=== PATIENT | female | born 1950 | race African-American/Black ===

== ENCOUNTER 2016-06-09 14:49 | Observation (INO) | payer MEDICARE, OTHER ==
[~2016-06-09] VITALS: Ht 154.9 cm; Wt 74.0 kg
[2016-06-09] VITALS (8 sets, daily range): BP systolic 114–197; BP diastolic 55–91; PULSE 62–73; RESP 17–20; TEMP 97.8–97.9; O2SAT 98–100
[~2016-06-09 14:49] MED LIST: ASPI-81 PO; BENI20TA25 PO; BENI40TA30 PO; GLUCTAB PO; HUMA100I3 SC; HUMSS SQ; LANTINJ SC; LANTUSP SQ; PRAV20 PO
--- NOTE | 2016-06-09 15:08 | PD ---
HPI Chief Complaint: Cardiac Complaint Time Seen by Provider: 15:07 Travel History International Travel<30 days: No Contact w/Intl Traveler<30days: No Traveled to known affect area: No History of Present Illness HPI 66 year-old female history of hypertension, diabetes mellitus, hypercholesterolemia, and GERD presents to emergency department for evaluation of a chest pressure intermittently occurring over the last 2 days. Patient has had associated palpitations. States she has had no nausea or vomiting. She states she has felt weak during some of the episodes. Denies any recent illnesses, fever, chills. No cough or chest congestion. No history of tobacco cigarette smoking. Patient states she has no cardiac history. No other symptoms to report. PFSH Past Medical History Anxiety: Yes High Cholesterol: Yes Diabetes: Yes Hypertension: Yes Immunizations Current: Yes Menopausal: Yes Tubal Ligation: Yes Past Surgical History Hysterectomy: Yes Social History Alcohol Use: No Tobacco Use: No Substance Use: No Allergies-Medications (Allergen,Severity, Reaction): Coded Allergies: Keflex (Verified Adverse Reaction, Mild, YEAST INFECTION, 06/09/16) Reported Meds & Prescriptions Reported Meds & Active Scripts Active Reported Metformin (Metformin HCl) 500 Mg Tab 500 Mg PO BID With meals Zantac (Ranitidine HCl) 150 Mg Tab 150 Mg PO BIDAC Pravastatin 40 Mg Tab 40 Mg PO DAILY Aspirin Adult Low Strength (Aspirin) 81 Mg Tabdr 81 Mg PO DAILY Trulicity Inj (Dulaglutide Inj) 1.5 Mg/0.5 Ml Pen 1.5 Mg SQ Q7D Review of Systems Except as stated in HPI: all other systems reviewed are Neg Physical Exam Narrative GENERAL: Well-nourished female patient, ambulatory and in no acute distress SKIN: Warm and dry. HEAD: Atraumatic. Normocephalic. EYES: Pupils equal and round. No scleral icterus. No injection or drainage. ENT: No nasal bleeding or discharge. Mucous membranes pink and moist. NECK: Trachea midline. No JVD. CARDIOVASCULAR: Regular rate and rhythm. No murmur appreciated. RESPIRATORY: No accessory muscle use. Clear to auscultation. Breath sounds equal bilaterally. GASTROINTESTINAL: Abdomen soft, non-tender, nondistended. Hepatic and splenic margins not palpable. MUSCULOSKELETAL: No obvious deformities. No clubbing. No cyanosis. No edema. NEUROLOGICAL: Awake and alert. No obvious cranial nerve deficits. Motor grossly within normal limits. Normal speech. PSYCHIATRIC: Appropriate mood and affect; insight and judgment normal. Data Data Last Documented VS Vital Signs Date Time Temp Pulse Resp B/P Pulse Ox O2 Delivery O2 Flow Rate FiO2 06/09/16 15:21 100 Room Air 06/09/16 15:20 73 19 187/81 06/09/16 14:55 97.8 Orders Electrocardiogram (06/09/16 ) Basic Metabolic Panel (Bmp) (06/09/16 15:16) Ckmb (Isoenzyme) Profile (06/09/16 15:16) Complete Blood Count With Diff (06/09/16 15:16) Magnesium (Mg) (06/09/16 15:16) Prothrombin Time / Inr (Pt) (06/09/16 15:16) Act Partial Throm Time (Ptt) (06/09/16 15:16) Troponin I (06/09/16 15:16) Lipase (06/09/16 15:16) Chest, Single Ap (06/09/16 15:16) Ecg Monitoring (06/09/16 15:16) Bilateral Bp Monitoring (06/09/16 15:16) Iv Access Insert/Monitor (06/09/16 15:16) Oximetry (06/09/16 15:16) Oxygen Administration (06/09/16 15:16) Aspirin Chew (Aspirin Chew) (06/09/16 15:30) Sodium Chloride 0.9% Flush (Ns Flush) (06/09/16 15:30) Admit Order (Ed Use Only) (06/09/16 16:34) Labs Laboratory Tests Test 06/09/16 15:35 White Blood Count 4.9 TH/MM3 Red Blood Count 3.94 MIL/MM3 Hemoglobin 12.0 GM/DL Hematocrit 36.7 % Mean Corpuscular Volume 93.1 FL Mean Corpuscular Hemoglobin 30.5 PG Mean Corpuscular Hemoglobin 32.8 % Concent Red Cell Distribution Width 13.3 % Platelet Count 259 TH/MM3 Mean Platelet Volume 8.2 FL Neutrophils (%) (Auto) 48.6 % Lymphocytes (%) (Auto) 40.5 % Monocytes (%) (Auto) 8.1 % Eosinophils (%) (Auto) 2.1 % Basophils (%) (Auto) 0.7 % Neutrophils # (Auto) 2.4 TH/MM3 Lymphocytes # (Auto) 2.0 TH/MM3 Monocytes # (Auto) 0.4 TH/MM3 Eosinophils # (Auto) 0.1 TH/MM3 Basophils # (Auto) 0.0 TH/MM3 CBC Comment DIFF FINAL Differential Comment Prothrombin Time 10.4 SEC Prothromb Time International 0.9 RATIO Ratio Activated Partial 21.1 SEC Thromboplast Time Sodium Level 138 MEQ/L Potassium Level 4.4 MEQ/L Chloride Level 103 MEQ/L Carbon Dioxide Level 27.0 MEQ/L Anion Gap 8 MEQ/L Blood Urea Nitrogen 16 MG/DL Creatinine 1.19 MG/DL Estimat Glomerular Filtration 55 ML/MIN Rate Random Glucose 193 MG/DL Calcium Level 9.8 MG/DL Magnesium Level 1.9 MG/DL Total Creatine Kinase 97 U/L Troponin I LESS THAN 0.02 NG/ML Lipase 326 U/L MDM Medical Decision Making Medical Screen Exam Complete: Yes Emergency Medical Condition: Yes Medical Record Reviewed: Yes Differential Diagnosis ACS versus angina versus vasospasm versus GERD versus dysrhythmia Narrative Course 66 year-old female presents to the emergency department for evaluation of a chest pressure. Patient states is not a definite pain. She appears well and without distress EKG is with prolonged MI interval, first-degree AV block. No ST elevation or depression. Vital signs are stable. Chest x-ray is with no acute disease. CBC is without acute concern. BMP is slightly elevated creatinine 1.19, GFR 55. BUN is within normal limits. Glucose is elevated at 193. Troponin is less than 0.02. Patient will be admitted to the chest pain center for further evaluation. Plan is discussed with the patient and my attending physician. They are in agreement with this plan of care. Diagnosis Primary Impression: Chest pain Qualified Code: R07.9 - Chest pain, unspecified type Admitting Information Admitting Physician Requests: Observation Condition: Stable Adalgisa AlonsoP Jun 09, 2016 15:08
[2016-06-09] MEDS ORDERED: ASPIRIN 81 MG CHEW TAB PO ONE (15:30)
[2016-06-09] MEDS ORDERED: SODIUM CHLORIDE 0.9% FLUSH 5 ML FLUSH IVF PRN ×2 (15:30→18:15)
[2016-06-09] MEDS ORDERED: PRAV40TA2 PO (15:40)
[2016-06-09] MEDS ORDERED: DULA0.5I SQ (15:40)
[2016-06-09] MEDS ORDERED: ASPI1TAB91 PO (15:40)
[2016-06-09] MEDS ORDERED: ZANT150T2 PO (15:40)
[2016-06-09] MEDS ORDERED: METF500T PO (15:40)
--- NOTE | 2016-06-09 15:43 | RADRPT ---
EXAM DATE/TIME: 06/09/2016 15:35 [facility] COMPARISON: No previous studies available for comparison. INDICATIONS : Chest pain and pressure for the past few days. MEDICAL HISTORY : Hypertension. Diabetes mellitus type II. SURGICAL HISTORY : None. ENCOUNTER: Initial ACUITY: 4 - 6 days PAIN SCORE: 5/10 LOCATION: Bilateral chest FINDINGS: A single view of the chest demonstrates the lungs to be symmetrically aerated without evidence of mas s, infiltrate or effusion. The cardiomediastinal contours are unremarkable. Osseous structures are intact. CONCLUSION: No acute disease. Roberto Field MD on June 09, 2016 at 15:41 Board Certified Radiologist. This report was verified electronically.
[2016-06-09 16:02] LABS: APTT (PATIENT) 21.1 SEC (24.3-30.1); INTERNATIONAL NORMALIZED RATIO 0.9 RATIO; PROTHROMBIN TIME - PATIENT 10.4 SEC (9.8-11.6)
[2016-06-09 16:04] LABS: ANION GAP 8 MEQ/L (5-15); BLOOD UREA NITROGEN 16 MG/DL (7-18); CHLORIDE 103 MEQ/L (98-107); GLOMERULAR FILTRATION RATE 55 ML/MIN (>89); MAGNESIUM 1.9 MG/DL (1.5-2.5); SODIUM (NA) 138 MEQ/L (136-145)
[2016-06-09 16:13] LABS: AUTOMATED NEUTROPHIL # 2.4 TH/MM3 (1.8-7.7); BASOPHIL % 0.7 % (0.0-2.0); EOSINOPHIL # 0.1 TH/MM3 (0-0.4); EOSINOPHIL % 2.1 % (0.0-4.0); HEMATOCRIT 36.7 % (35.0-46.0); HEMO FLAGS DIFF FINAL; LYMPH % 40.5 % (9.0-44.0); MEAN CELL VOLUME 93.1 FL (80.0-100.0); MEAN CORPUSCULAR HEMOGLOBIN 30.5 PG (27.0-34.0); MEAN CORPUSCULAR HGB CONC 32.8 % (32.0-36.0); MONO % 8.1 % (0.0-8.0); NEUT % 48.6 % (16.0-70.0); PLATELET COUNT 259 TH/MM3 (150-450); RED BLOOD COUNT 3.94 MIL/MM3 (4.00-5.30); RED CELL DISTRIBUTION WIDTH 13.3 % (11.6-17.2); WHITE BLOOD COUNT 4.9 TH/MM3 (4.0-11.0)
[2016-06-09 16:19] LABS: POTASSIUM 4.4 MEQ/L (3.5-5.1)
[2016-06-09 16:28] LABS: CREATINE KINASE 97 U/L (26-192)
--- NOTE | 2016-06-09 18:04 | EKG ---
Date Performed: 06/09/2016 Time Performed: 15:09:41 PTAGE: 66 years EKG: Sinus rhythm WITH FIRST DEGREE AV BLOCK ABNORMAL ECG COMPARED TO PRIOR ELECTROCARDIOGRAM, First degree AV block i s present. PREVIOUS TRACING : 05/02/1998 21.50 DOCTOR: Malachi Tineo Interpretating Date/Time 06/09/2016 18:02:26
[2016-06-09] MEDS ORDERED: ONDANSETRON HCL 4 MG/2 ML VIAL IV PRN (18:15)
[2016-06-09] MEDS ORDERED: ACETAMINOPHEN 500 MG CPLT PO PRN (18:15)
[2016-06-09] MEDS ORDERED: NITROGLYCERIN 0.4 MG SL 25 TABS/BTL SL PRN (18:15)
[2016-06-09 19:59] LABS: CREATINE KINASE 115 U/L (26-192)
[2016-06-09 20:12] LABS: CKMB 1.2 NG/ML (0.5-3.6)
[2016-06-09] MEDS: SODIUM CHLORIDE 0.9% FLUSH 5 ML FLUSH IVF SCH (20:37)
[2016-06-09 22:43] LABS: CREATINE KINASE 62 U/L (26-192)
[2016-06-10] VITALS (7 sets, daily range): BP systolic 100–116; BP diastolic 51–56; PULSE 54–60; RESP 16–18; TEMP 97.5–98.1; O2SAT 98–100
[2016-06-10] MEDS ORDERED: PRAVASTATIN SOD 40 MG TAB PO SCH (09:30)
[2016-06-10] MEDS ORDERED: GLUCAGON 1 MG/ML VIAL IM/SQ PRN (09:30)
[2016-06-10] MEDS ORDERED: FAMOTIDINE 20 MG TAB PO SCH (09:30)
[2016-06-10] MEDS ORDERED: DEXTROSE 50% IN WATER 50 ML VIAL(D50) IV PRN (09:30)
[2016-06-10] MEDS: SODIUM CHLORIDE 0.9% FLUSH 5 ML FLUSH IVF SCH (09:48)
[2016-06-10] MEDS ORDERED: BENI40TA3 PO (10:25)
[2016-06-10] MEDS ORDERED: LOSARTAN 50 MG TAB PO SCH (10:45)
--- NOTE | 2016-06-10 10:56 | HHI.HP ---
[facility] Primary Care Physician Dalila Frost MD Chief Complaint Chest pain History of Present Illness This is a 58-year-old female that presents to the ED complaining of 3 days of intermittent central/left-sided chest pressure. It is not exertional related. When it occurs it last for a minute or so. She also has had sensation of heart beating rapidly that will last for minutes at a time as well. These 2 symptoms do not necessary correlate with each other. She's had no nausea shortness breath or diaphoresis with her symptoms. She cannot recall having a prior cardiac workup. She has any recent illnesses. Denies fevers or chills. She saw nothing to bring on her discomfort or the sensation of her heart beating rapidly or irregularly. Review of Systems General: Patient denies fevers, chills recent, and recent travel HEENT: Patient denies headache, sore throat, difficulty swallowing. Cardiovascular: Has the chest discomfort as mentioned above. She had episodes where it felt as if her heart was beating rapidly. They last a couple minutes at a time. Denies sensation of heart beating irregularly. No syncope. Denies diaphoresis. Respiratory: Denies shortness of breath or inspirational chest discomfort. Denies coughing wheezing or hemoptysis. GI: Patient denies nausea, vomiting, diarrhea, abdominal pain, bloody stools. Musculoskeletal: Patient denies joint pain or edema. Denies calf pain or edema. Neurovascular: Patient denies numbness, tingling, weakness in extremities. Denies headache. Endocrine: Denies polyuria and polydipsia. Hematologic: Denies easy bruising. Skin: Denies rash or itching. Past Family Social History Allergies: Coded Allergies: Keflex (Verified Adverse Reaction, Mild, YEAST INFECTION, 06/09/16) Past Medical History Hypertension, hyperlipidemia, diabetes. Denies CAD. Past Surgical History Hysterectomy. Reported Medications Reported Meds & Active Scripts Active Reported Benicar (Olmesartan) 40 Mg Tab 40 Mg PO DAILY Metformin (Metformin HCl) 500 Mg Tab 500 Mg PO BID With meals Zantac (Ranitidine HCl) 150 Mg Tab 150 Mg PO BIDAC Pravastatin 40 Mg Tab 40 Mg PO DAILY Aspirin Adult Low Strength (Aspirin) 81 Mg Tabdr 81 Mg PO DAILY Trulicity Inj (Dulaglutide Inj) 1.5 Mg/0.5 Ml Pen 1.5 Mg SQ Q7D Active Ordered Medications Current Medications Medications (Trade) Dose Ordered Sig/Riddhi Route Start Time Stop Time Status Last Admin (NS Flush) 2 ml UNSCH PRN IVF 06/09/16 15:30 (NS Flush) 2 ml UNSCH PRN IVF 06/09/16 18:15 (NS Flush) 2 ml BID IVF 06/09/16 21:00 06/10/16 09:48 (Tylenol) 500 mg Q4H PRN PO 06/09/16 18:15 (Zofran Inj) 4 mg Q6H PRN IV 06/09/16 18:15 (Nitrostat Sl) 0.4 mg Q5M PRN SL 06/09/16 18:15 (Pravachol) 40 mg DAILY PO 06/10/16 09:30 06/10/16 09:48 (Pepcid) 20 mg BIDAC PO 06/10/16 09:30 06/10/16 09:48 (D50w (Vial) Inj) 25 ml UNSCH PRN IV 06/10/16 09:30 (Glucagon Inj) 1 mg UNSCH PRN IM/SQ 06/10/16 09:30 (Cozaar) 100 mg DAILY PO 06/10/16 10:45 Family History Her brother at age 73 of a myocardial infarction. Social History Patient is a lifetime nonsmoker. Denies alcohol and illicit drugs. He is retired. Physical Exam Vital Signs Vital Signs Date Time Temp Pulse Resp B/P Pulse Ox O2 Delivery O2 Flow Rate FiO2 06/10/16 08:06 97.5 60 18 100/51 100 06/10/16 07:18 99 21 06/10/16 04:16 98.1 57 16 101/55 99 06/10/16 04:00 54 06/10/16 00:34 98.1 57 109/54 98 06/10/16 00:00 54 06/09/16 21:04 98 06/09/16 20:17 66 06/09/16 19:55 97.9 66 18 114/55 99 06/09/16 18:00 62 17 139/63 100 Room Air 06/09/16 17:00 66 20 149/67 100 Room Air 06/09/16 15:21 100 Room Air 06/09/16 15:20 73 19 187/81 100 Room Air 06/09/16 15:16 73 98 Room Air 06/09/16 14:55 97.8 73 17 197/91 100 Physical Exam GENERAL: This is a well-nourished, well-developed patient, in no apparent distress. Patient speaks in clear complete sentences. Patient is pleasant. HEENT: Head is atraumatic and normocephalic. Neck is supple without lymphadenopathy and trachea is midline. No JVD or carotid bruits. CARDIOVASCULAR: Regular rate and rhythm without murmurs, gallops, or rubs. RESPIRATORY: Clear to auscultation. Breath sounds equal bilaterally. No wheezes , rales, or rhonchi. Chest wall is nontender. No use of accessory muscles. GASTROINTESTINAL: Abdomen is nontender, nondistended. Abdomen soft. No obvious pulsatile mass or bruit. No CVA tenderness. Strong femoral pulses bilaterally. Normal bowel sounds in all quadrants. MUSCULOSKELETAL: Patient is moving upper and lower extremities freely. No calf tenderness or edema, no Homans sign. Strong pulses in upper and lower extremities. NEUROLOGICAL: Patient is alert and oriented. Cranial nerves 2-12 are grossly intact. No focal deficits and speech is clear. SKIN: No rash and turgor is normal. Laboratory Laboratory Tests Test 06/09/16 06/09/16 06/09/16 15:35 19:00 22:00 White Blood Count 4.9 Red Blood Count 3.94 Hemoglobin 12.0 Hematocrit 36.7 Mean Corpuscular Volume 93.1 Mean Corpuscular Hemoglobin 30.5 Mean Corpuscular Hemoglobin 32.8 Concent Red Cell Distribution Width 13.3 Platelet Count 259 Mean Platelet Volume 8.2 Neutrophils (%) (Auto) 48.6 Lymphocytes (%) (Auto) 40.5 Monocytes (%) (Auto) 8.1 Eosinophils (%) (Auto) 2.1 Basophils (%) (Auto) 0.7 Neutrophils # (Auto) 2.4 Lymphocytes # (Auto) 2.0 Monocytes # (Auto) 0.4 Eosinophils # (Auto) 0.1 Basophils # (Auto) 0.0 CBC Comment DIFF FINAL Differential Comment Prothrombin Time 10.4 Prothromb Time International 0.9 Ratio Activated Partial 21.1 Thromboplast Time Sodium Level 138 Potassium Level 4.4 Chloride Level 103 Carbon Dioxide Level 27.0 Anion Gap 8 Blood Urea Nitrogen 16 Creatinine 1.19 Estimat Glomerular Filtration 55 Rate Random Glucose 193 Calcium Level 9.8 Magnesium Level 1.9 Total Creatine Kinase 97 115 62 Troponin I LESS THAN 0.02 LESS THAN 0.02 LESS THAN 0.02 Lipase 326 Creatine Kinase MB 1.2 Result Diagram: 06/09/16 1535 06/09/16 1535 Imaging Last 24 hours Impressions Chest X-Ray 06/09/16 1516 Signed Impressions: Service Date/Time: Thursday, June 09, 2016 15:35 - CONCLUSION: No acute disease. Roberto Field MD Course EKGs have sinus rhythm with no significant ST segment depressions or elevations. There was first-degree AV block. There are nonspecific T-wave changes. Assessment and Plan Assessment and Plan * Chest pain: Patient has had serial cardiac enzymes and EKGs for ruling out purposes. She will be seen by Dr. Bloom of cardiology in the chest pain center. She will undergo a Reji protocol ETT. She will likely be discharged home if her stress test were to be nonischemic. She should follow-up with her primary care physician. * Diabetes: She will be on sliding scale insulin coverage while in the chest pain center. She should follow diabetic diet and continue medication at discharge. * Hypertension: Continue Benicar. * Hyperlipidemia: Continue current medication. Patient is stable at this time. She is agreeable to this plan. Richard Lemus Jun 10, 2016 10:56
[2016-06-10] MEDS ORDERED: INSULIN ASPART SUPPLEMENTAL SCALE SQ SCH (11:00)
--- NOTE | 2016-06-10 11:58 | HHI.DCPOC ---
Discharge Care Plan Diagnosis: (1) Chest pain (2) Hypertension (3) DM (diabetes mellitus) (4) Hyperlipidemia Goals to Promote Your Health * To prevent worsening of your condition and complications * To maintain your health at the optimal level Directions to Meet Your Goals Take your medications as prescribed Follow your dietary instruction Follow activity as directed Keep your appointments as scheduled Take your immunizations and boosters as scheduled If your symptoms worsen call your PCP, if no PCP go to Urgent Care Center or Emergency Room Smoking is Dangerous to Your Health. Avoid second hand smoke Call the 24-hour hour crisis hotline for domestic abuse at Richard Lemus Jun 10, 2016 11:58
--- NOTE | 2016-06-10 12:36 | EKG ---
Date Performed: 06/09/2016 Time Performed: 21:34:45 PTAGE: 66 years EKG: SINUS BRADYCARDIA WITH FIRST DEGREE AV BLOCK ABNORMAL ECG INTERPRETATION BASED ON A DEFAULT AGE OF 38 YEARS NO PREVIOUS TRACING DOCTOR: Malachi Tineo Interpretating Date/Time 06/10/2016 12:34:21
--- NOTE | 2016-06-10 14:16 | TR ---
Date Performed: 06/10/2016 Time Performed: 10:04:46 DOCTOR: Parag Bloom DRUG LIST: CLINICAL HISTORY: REASON FOR TEST: Chest pain REASON FOR ENDING: OBSERVATION: CONCLUSION: BRIGID PROTOCOL. NO CP. TEST STOPPED AFTER EXCEEDING GOAL HR SECONDARY TO SOB AND LEG FATIGUE.Maximum TJ=729 % Max HR Fnebyohm=740.0% Maximum JX=652/80 Total Exercise Time=2:01 COMMENTS:
--- NOTE | 2016-06-10 14:16 | EKG ---
Date Performed: 06/09/2016 Time Performed: 20:19:50 PTAGE: 66 years EKG: Sinus rhythm WITH FIRST DEGREE AV BLOCK LOW QRS VOLTAGE IN EXTREMITY LEADS NONSPECIFIC T-WAVE ABNORMALITY ABNORMA L ECG PREVIOUS TRACING : 06/09/2016 20.19 Since previous tracing, no significant change noted DOCTOR: Parag Bloom Interpretating Date/Time 06/11/2016 07:53:46
--- NOTE | 2016-06-10 14:19 | EKG ---
Date Performed: 06/09/2016 Time Performed: 18:21:38 PTAGE: 66 years EKG: Sinus rhythm WITH FIRST DEGREE AV BLOCK ABNORMAL ECG PREVIOUS TRACING : 06/09/2016 15.09 Since previous tracing, no significant change noted DOCTOR: Parag Bloom Interpretating Date/Time 06/10/2016 14:17:25
== END 2016-06-10 13:07 | disposition home or self-care (01) ==
LOC: NEPE 14:49 → NEDA 16:35 → NEPGCP 19:26
DX: R07.9 Chest pain, unspecified (principal); I10 Essential (primary) hypertension; E11.9 Type 2 diabetes mellitus without complications; E78.5 Hyperlipidemia, unspecified; E78.00 Pure hypercholesterolemia, unspecified; I44.0 Atrioventricular block, first degree; K21.9 Gastro-esophageal reflux disease without esophagitis
CPT/HCPCS: 71010; 80048; 82550; 82552; 83690; 83735; 84484; 85025; 85610; 85730; 93005; 93017; 99285; G0378